=== PATIENT | male | born 1995 | race American Indian/Alaskan Native ===

== ENCOUNTER 2019-10-29 10:57 | Emergency (ER) | payer SELFPAY ==
--- NOTE | 2019-10-29 11:49 | XRay Report ---
Chest 2 views INDICATION: Chest pain IMPRESSION: Ill-defined interstitial abnormality throughout both lungs, left worse than right. No ple ural effusion. Heart size normal. Signer Name: Cuba Bright MD Signed: 10/29/2019 11:45 AM Workstation Name: [id number]
[2019-10-29 14:16] LABS: Hematocrit 46.4 % (35.5-45.6); Mean Corpuscular HGB Conc 32 % (32-34); Mean Corpuscular Volume 86 fl (84-94); Platelet Count 129 K/mm3 (140-440); Red Blood Count 5.38 M/mm3 (3.65-5.03); Red Cell Distribution Width 13.9 % (13.2-15.2)
[2019-10-29 14:37] LABS: Alanine Aminotransferase 61 units/L (7-56); Albumin 4.5 g/dL (3.9-5); BUN/Creatinine Ratio 20; Blood Urea Nitrogen 16 mg/dL (9-20); Calcium 9.2 mg/dL (8.4-10.2); Hemolysis Index 32
--- NOTE | 2019-10-29 14:56 | Emergency Department Report ---
- General Chief Complaint: Upper Respiratory Infection Stated Complaint: COUGH SORE THROAT CHEST PAIN Time Seen by Provider: 10/29/19 14:49 Source: patient Mode of arrival: Ambulatory Limitations: No Limitations - History of Present Illness Initial Comments: Patient is 24-year-old male with no significant past medical history except for cardiac surgery when he was 2 weeks old. Patient presented to the ER complaining of cough, productive with greenish and brownish sputum for the last 2-1/2 weeks. Patient also stated that he has been having some chills but no fever. Patient denied any nausea or vomiting. No chest pain or shortness of breath. MD Complaint: fever, cough -: week(s) (2) - Related Data Allergies Allergy/AdvReac Type Severity Reaction Status Date / Time No Known Allergies Allergy Verified 10/29/19 11:07 ED Review of Systems ROS: Stated complaint: COUGH SORE THROAT CHEST PAIN Other details as noted in HPI Comment: All other systems reviewed and negative Constitutional: chills. denies: fever Respiratory: cough. denies: shortness of breath, SOB with exertion, SOB at rest, wheezing Cardiovascular: denies: chest pain Gastrointestinal: denies: abdominal pain, nausea, vomiting Musculoskeletal: denies: as per HPI ED Past Medical Hx - Past Medical History Previous Medical History?: No - Surgical History Past Surgical History?: No - Social History Smoking Status: Never Smoker Substance Use Type: None ED Physical Exam - General Limitations: No Limitations General appearance: alert, in no apparent distress - Head Head exam: Present: atraumatic, normocephalic, normal inspection - Eye Eye exam: Present: normal appearance - ENT ENT exam: Present: normal exam, normal orophraynx, mucous membranes moist - Neck Neck exam: Present: normal inspection, full ROM. Absent: tenderness, meningismus, lymphadenopathy, thyromegaly - Respiratory Respiratory exam: Present: normal lung sounds bilaterally - Cardiovascular Cardiovascular Exam: Present: regular rate, normal rhythm, normal heart sounds - GI/Abdominal GI/Abdominal exam: Present: soft, normal bowel sounds. Absent: distended, tenderness, guarding, rebound, rigid, organomegaly, mass, bruit, pulsatile mass, hernia - Extremities Exam Extremities exam: Present: normal inspection, full ROM, normal capillary refill. Absent: tenderness, pedal edema, joint swelling, calf tenderness - Back Exam Back exam: Present: normal inspection, full ROM. Absent: CVA tenderness (R), CVA tenderness (L) - Neurological Exam Neurological exam: Present: alert, oriented X3, CN II-XII intact, normal gait, reflexes normal - Psychiatric Psychiatric exam: Present: normal mood - Skin Skin exam: Present: warm, intact, normal color ED Course Vital Signs 10/29/19 11:18 Temperature 98.9 F Pulse Rate 80 Respiratory 18 Rate Blood Pressure 143/78 O2 Sat by Pulse 96 Oximetry ED Medical Decision Making - Lab Data Result diagrams: 10/29/19 14:00 10/29/19 14:00 - Radiology Data Radiology results: report reviewed - Medical Decision Making 24-year-old male with productive cough for the last 2-1/2 weeks. Chest x-ray is unremarkable. Labs reviewed and is negative for acute finding. Patient symptoms is consistent with asthmatic bronchitis. Patient given amoxicillin and albuterol inhaler and advised to follow-up with his primary care physician in the next 2 to 3 days and to return to the ER if he develop any new symptoms. Critical care attestation.: If time is entered above; I have spent that time in minutes in the direct care of this critically ill patient, excluding procedure time. ED Disposition Clinical Impression: Asthmatic bronchitis Disposition: -01 TO HOME OR SELFCARE Is pt being admited?: No Condition: Stable Instructions: Acute Bronchitis (ED) Referrals: [facility] [Provider Group] - 3-5 Days
[2019-10-29 14:57] LABS: Total Cells Counted 100
[2019-10-29 14:58] LABS: Platelet Estimate Consistent w Auto; RBC Morphology Normal
[2019-10-29 15:50] VITALS: BP 132/75
== END 2019-10-29 15:51 | disposition home or self-care (01) ==
LOC: ED 10:57
DX: J45.909 Unspecified asthma, uncomplicated (principal)
CPT/HCPCS: 36415; 71046; 80053; 85007; 85025